=== PATIENT | male | born 1990 | race Caucasian/White ===

== ENCOUNTER 2017-07-06 13:27 | Emergency (ER) | payer MEDICAID ==
[~2017-07-06] VITALS: Ht 172.7 cm; Wt 64.1 kg
[~2017-07-06 13:27] MED LIST: BENZ14GE TOP; CLIN-80 PO; IBUP-1986 PO; PERM60CR4 TP
[2017-07-06] MEDS ORDERED: BACDS PO (13:54)
[2017-07-06] MEDS ORDERED: sulfamethoxazole/trimethoprim DS (800/160mg) tablet PO ONE (13:55)
[2017-07-06 14:13] VITALS: BP 135/75
== END 2017-07-06 14:18 | disposition home or self-care (01) ==
LOC: ER 13:28
DX: A49.02 Methicillin resistant Staphylococcus aureus infection, unspecified site (principal); J45.909 Unspecified asthma, uncomplicated; F15.10 Other stimulant abuse, uncomplicated; F17.210 Nicotine dependence, cigarettes, uncomplicated; F11.10 Opioid abuse, uncomplicated; Z88.5 Allergy status to narcotic agent; Z79.899 Other long term (current) drug therapy; Z56.0 Unemployment, unspecified
CPT/HCPCS: 99283

== ENCOUNTER 2017-09-06 10:31 | Emergency (ER) | payer MEDICAID ==
[~2017-09-06 10:31] MED LIST changes: -CLIN-80 PO; +CLIN300C85 PO
== END 2017-09-06 14:08 | disposition left against medical advice (07) ==
LOC: ER 10:31
DX: L02.91 Cutaneous abscess, unspecified (principal); Z53.21 Procedure and treatment not carried out due to patient leaving prior to being seen by health care provider

== ENCOUNTER 2017-10-03 18:55 | Emergency (ER) | payer MEDICAID ==
[~2017-10-03] VITALS: Ht 152.4 cm; Wt 62.0 kg
[2017-10-03 19:12] VITALS: BP 116/76
[2017-10-03] MEDS ORDERED: IBUP-1984 PO (19:27)
[2017-10-03] MEDS ORDERED: SULF1TAB49 PO (19:27)
== END 2017-10-03 19:38 | disposition home or self-care (01) ==
LOC: ER 18:55
DX: L03.221 Cellulitis of neck (principal); F41.9 Anxiety disorder, unspecified; F15.90 Other stimulant use, unspecified, uncomplicated; F11.90 Opioid use, unspecified, uncomplicated; J45.909 Unspecified asthma, uncomplicated; Z56.0 Unemployment, unspecified; Z88.1 Allergy status to other antibiotic agents; Z88.6 Allergy status to analgesic agent; Z88.8 Allergy status to other drugs, medicaments and biological substances
CPT/HCPCS: 99283

== ENCOUNTER 2018-11-04 03:20 | Emergency (ER) | payer MEDICAID ==
[~2018-11-04] VITALS: Ht 172.7 cm; Wt 72.7 kg
[~2018-11-04 03:20] MED LIST changes: +CLIN-96 PO; -CLIN300C85 PO
[2018-11-04] MEDS ORDERED: BACDS PO (03:47)
[2018-11-04] MEDS ORDERED: sulfamethoxazole/trimethoprim DS (800/160mg) tablet PO ONE (03:50)
[2018-11-04 04:03] VITALS: BP 128/78
== END 2018-11-04 04:06 | disposition home or self-care (01) ==
LOC: ER 03:20
DX: L03.317 Cellulitis of buttock (principal); J45.909 Unspecified asthma, uncomplicated; F41.9 Anxiety disorder, unspecified; F12.90 Cannabis use, unspecified, uncomplicated; F15.90 Other stimulant use, unspecified, uncomplicated; F11.90 Opioid use, unspecified, uncomplicated; F17.210 Nicotine dependence, cigarettes, uncomplicated; Z56.0 Unemployment, unspecified; Z88.5 Allergy status to narcotic agent; Z79.2 Long term (current) use of antibiotics; Z79.899 Other long term (current) drug therapy
CPT/HCPCS: 99283

== ENCOUNTER 2019-04-13 09:08 | Emergency (ER) | payer MEDICAID ==
[~2019-04-13] VITALS: Ht 172.7 cm; Wt 64.0 kg
[~2019-04-13 09:08] MED LIST changes: +CLIN-90 PO; -CLIN-96 PO
[2019-04-13] MEDS ORDERED: SULF1TAB49 PO (11:33)
[2019-04-13 11:58] VITALS: BP 128/90
== END 2019-04-13 12:00 | disposition home or self-care (01) ==
LOC: ER 09:09
DX: L02.31 Cutaneous abscess of buttock (principal); J45.909 Unspecified asthma, uncomplicated; F41.9 Anxiety disorder, unspecified; F12.90 Cannabis use, unspecified, uncomplicated; F15.90 Other stimulant use, unspecified, uncomplicated; F11.90 Opioid use, unspecified, uncomplicated; Z56.0 Unemployment, unspecified; Z98.890 Other specified postprocedural states; Z72.89 Other problems related to lifestyle; Z88.5 Allergy status to narcotic agent; Z79.899 Other long term (current) drug therapy
CPT/HCPCS: 10060; 99283

== ENCOUNTER 2019-10-26 12:10 | Emergency (ER) | payer MEDICAID ==
[~2019-10-26 12:10] MED LIST changes: -CLIN-90 PO; +CLIN-97 PO
--- NOTE | 2019-10-26 12:51 | NUR ---
PT CALLED TO TRIAGE X3, NIL. DID NOT NOTIFIED ANYONE THAT HE WAS LEAVING. INSURANCE CASE MANAGER NOTIFIED
--- NOTE | 2019-10-26 12:56 | NUR ---
Attempted to call patient due to being called back three times and not in lobby, number has been disconnected. Unable to reach patient.
== END 2019-10-26 12:57 | disposition left against medical advice (07) ==
LOC: ER 12:11
DX: L02.91 Cutaneous abscess, unspecified (principal); Z53.21 Procedure and treatment not carried out due to patient leaving prior to being seen by health care provider

== ENCOUNTER 2020-05-11 08:44 | Emergency (ER) | payer MEDICAID ==
[~2020-05-11] VITALS: Ht 172.7 cm; Wt 66.8 kg
[2020-05-11 08:47] VITALS: BP 114/66
[2020-05-11] MEDS ORDERED: CefTRIAXone 1000mg IM Kit (w/lidocaine diluent) IM STA (09:03)
[2020-05-11] MEDS ORDERED: azithromycin 250mg tablet PO ONE (09:05)
[2020-05-11] MEDS ORDERED: ketorolac tromethamine 15mg/ml inj. IM ONE (09:05)
--- NOTE | 2020-05-11 09:25 | NUR ---
ultrasound in room
[2020-05-11 10:43] LABS: CLARITY,URINE SLIGHTLY CLOUDY (Clear); COLOR,URINE YELLOW (Yellow); GLUCOSE, URINE NEGATIVE (Neg); KETONES,URINE NEGATIVE (Neg); LEUKOCYTE ESTERASE ,URINE SMALL (Neg); NITRITES, URINE NEGATIVE (Neg); OCCULT BLOOD,URINE SMALL (Neg); PH,URINE 6.5 (4.8-8.0); PROTEIN,URINE NEGATIVE (Neg)
[2020-05-11 10:48] LABS: UA COLLECTION TYPE CLN CATCH MIDSTREAM
[2020-05-11 10:49] LABS: BACTERIA,URINE FEW /HPF (Neg); MUCUS STRANDS NONE SEEN /LPF (Neg); RBC,URINE 0-2 /HPF (0-2); SQUAMOUS EPITHELIAL CELL,UR FEW /LPF (FEW); WBC,URINE 50-100 /HPF (0-4)
[2020-05-11] MEDS ORDERED: DOXY100C76 PO ×2 (11:03→11:06)
== END 2020-05-11 11:25 | disposition home or self-care (01) ==
LOC: ER 08:45
DX: N39.0 Urinary tract infection, site not specified (principal); N50.811 Right testicular pain; J45.909 Unspecified asthma, uncomplicated; F41.9 Anxiety disorder, unspecified; F12.90 Cannabis use, unspecified, uncomplicated; F15.90 Other stimulant use, unspecified, uncomplicated; F11.20 Opioid dependence, uncomplicated; Z72.89 Other problems related to lifestyle; Z56.0 Unemployment, unspecified; Z88.6 Allergy status to analgesic agent; Z79.2 Long term (current) use of antibiotics; Z79.899 Other long term (current) drug therapy
CPT/HCPCS: 36415; 76870; 81001; 87088; 87491; 87591; 93976; 96372; 99284; J0696; J1885

== ENCOUNTER 2020-10-03 20:47 | Emergency (ER) | payer MEDICAID, OTHER | END 2020-10-03 21:49 | disposition left against medical advice (07) | LOC: ER 20:48 | DX: Z53.21 Procedure and treatment not carried out due to patient leaving prior to being seen by health care provider (principal) ==

== ENCOUNTER 2020-10-07 06:24 | Emergency (ER) | payer OTHER ==
[2020-10-07] MEDS ORDERED: CLIN300C54 PO (06:42)
[2020-10-07] MEDS ORDERED: clindamycin 150mg capsule PO ONE (06:45)
== END 2020-10-07 09:39 | disposition left against medical advice (07) ==
LOC: ER 06:25
DX: L02.415 Cutaneous abscess of right lower limb (principal); L02.01 Cutaneous abscess of face; J45.909 Unspecified asthma, uncomplicated; F12.90 Cannabis use, unspecified, uncomplicated; F15.90 Other stimulant use, unspecified, uncomplicated; Z56.0 Unemployment, unspecified; Z72.89 Other problems related to lifestyle; Z87.440 Personal history of urinary (tract) infections; Z88.5 Allergy status to narcotic agent; Z79.2 Long term (current) use of antibiotics; Z79.899 Other long term (current) drug therapy
CPT/HCPCS: 99283

== ENCOUNTER 2020-10-09 06:42 | Emergency (ER) | payer OTHER ==
[~2020-10-09] VITALS: Ht 172.7 cm; Wt 71.8 kg
[~2020-10-09 06:42] MED LIST changes: +CLIN300C54 PO
[2020-10-09 06:44] VITALS: BP 122/64
[2020-10-09] MEDS ORDERED: CEPH-585 PO (07:36)
[2020-10-09] MEDS ORDERED: DOXY100C43 PO (07:36)
== END 2020-10-09 07:55 | disposition home or self-care (01) ==
LOC: ER 06:43
DX: L03.211 Cellulitis of face (principal); J45.909 Unspecified asthma, uncomplicated; F41.9 Anxiety disorder, unspecified; F12.90 Cannabis use, unspecified, uncomplicated; F15.90 Other stimulant use, unspecified, uncomplicated; F11.90 Opioid use, unspecified, uncomplicated; Z87.440 Personal history of urinary (tract) infections; Z98.890 Other specified postprocedural states; Z72.89 Other problems related to lifestyle; Z56.0 Unemployment, unspecified; Z88.5 Allergy status to narcotic agent; Z79.2 Long term (current) use of antibiotics; Z79.899 Other long term (current) drug therapy
CPT/HCPCS: 99283

== ENCOUNTER 2021-03-02 17:06 | Emergency (ER) | payer MEDICAID ==
[~2021-03-02] VITALS: Ht 175.3 cm; Wt 80.0 kg
[~2021-03-02 17:06] MED LIST changes: +CEPH-585 PO; -CLIN300C54 PO
[2021-03-02 17:39] VITALS: BP 115/69
[2021-03-02] MEDS ORDERED: iohexol 300mg/ml 100ml inj. ONE (23:11)
[2021-03-03 00:01] LABS: BASOPHILS % (AUTO) 0.3 % (0-1); EOSINOPHILS # (AUTO) 0.1 X10'3 (0-0.9); EOSINOPHILS % (AUTO) 0.8 % (0-6); HEMATOCRIT 39.9 % (42.0-52.0); HEMOGLOBIN 13.6 g/dl (14.0-17.9); LYMPHOCYTES # (AUTO) 2.5 X10'3 (1.1-4.8); LYMPHOCYTES % (AUTO) 23.1 % (21-51); MEAN CORPUSCULAR HEMOGLOBIN 28.7 PG (27.0-31.0); MEAN CORPUSCULAR VOLUME 84.4 FL (78-98); MEAN PLATELET VOLUME 7.8 FL (7.4-10.4); MONOCYTES # (AUTO) 0.8 X10'3 (0-0.9); MONOCYTES % (AUTO) 7.2 % (2-12); NEUTROPHILS # (AUTO) 7.4 X10'3 (1.8-7.7); NEUTROPHILS % (AUTO) 68.6 % (42-75); PLATELET COUNT 253 X10'3 (140-440); RED BLOOD COUNT 4.73 X10'6 (4.70-6.10); RED CELL DISTRIBUTION WIDTH 13.9 % (11.5-14.5); WHITE BLOOD COUNT 10.8 X10'3 (4.5-11.0)
[2021-03-03 00:06] LABS: ALANINE AMINOTRANSFERASE 23 U/L (12-78); ALBUMIN 3.8 G/DL (3.4-5.0); ALBUMIN/GLOBULIN RATIO 0.9 (1.1-1.5); ALKALINE PHOSPHATASE 85 IU/L (46-116); ANION GAP 2 (8-16); ASPARTATE AMINO TRANSFERASE 19 U/L (10-37); BILIRUBIN,TOTAL 0.4 MG/DL (0.1-1.0); BLOOD UREA NITROGEN 13 MG/DL (7-18); BUN/CREATININE RATIO 18.1 (5.4-32.0); CALCIUM 8.8 MG/DL (8.5-10.1); CHLORIDE 104 MMOL/L (99-107); CREATININE 0.72 MG/DL (0.60-1.10); GLUCOSE 96 MG/DL (70-104); POTASSIUM 3.9 MMOL/L (3.5-5.1); SODIUM 140 MMOL/L (135-145); TOTAL CARBON DIOXIDE 34.2 MMOL/L (24-32); eGFR > 90 ML/MIN
[2021-03-03] MEDS ORDERED: sulfamethoxazole/trimethoprim DS (800/160mg) tablet PO ONE (00:40)
[2021-03-03] MEDS ORDERED: amoxicillin 250mg capsule PO ONE (00:40)
[2021-03-03] MEDS ORDERED: LIDOcaine 1% W/epiNEPHrine 1:200,000 10ml vial IJ ONE (00:45)
[2021-03-03] MEDS ORDERED: LIDOcaine 1% W/epiNEPHrine 1:100,000 20ml vial IJ ONE (00:45)
[2021-03-03] MEDS ORDERED: amox tr/potassium clavulanate 875/125mg TAB PO ONE (00:50)
[2021-03-03] MEDS ORDERED: AMOX-422 PO (01:31)
[2021-03-03] MEDS ORDERED: SULF1TAB49 PO (01:31)
== END 2021-03-03 01:37 | disposition left against medical advice (07) ==
LOC: ER 17:07
DX: L03.213 Periorbital cellulitis (principal); L02.01 Cutaneous abscess of face; H57.11 Ocular pain, right eye; J45.909 Unspecified asthma, uncomplicated; F41.9 Anxiety disorder, unspecified; F12.90 Cannabis use, unspecified, uncomplicated; F15.90 Other stimulant use, unspecified, uncomplicated; F11.90 Opioid use, unspecified, uncomplicated; Z87.440 Personal history of urinary (tract) infections; Z98.890 Other specified postprocedural states; Z72.89 Other problems related to lifestyle; Z56.0 Unemployment, unspecified; Z88.5 Allergy status to narcotic agent; Z79.2 Long term (current) use of antibiotics; Z79.899 Other long term (current) drug therapy
CPT/HCPCS: 36415; 70487; 80053; 85025; 99285; Q9967

== ENCOUNTER 2021-04-14 06:24 | Emergency (ER) | payer MEDICAID ==
[~2021-04-14] VITALS: Ht 175.3 cm; Wt 71.5 kg
[2021-04-14 06:27] VITALS: BP 118/70
[2021-04-14] MEDS ORDERED: SULF-15 PO (07:00)
[2021-04-14] MEDS ORDERED: CEPH-585 PO (07:00)
== END 2021-04-14 07:17 | disposition home or self-care (01) ==
LOC: ER 06:25
DX: L02.01 Cutaneous abscess of face (principal); F41.9 Anxiety disorder, unspecified; J45.909 Unspecified asthma, uncomplicated; F12.10 Cannabis abuse, uncomplicated; F15.10 Other stimulant abuse, uncomplicated; Z56.0 Unemployment, unspecified; Z88.5 Allergy status to narcotic agent; Z79.899 Other long term (current) drug therapy
CPT/HCPCS: 99283